=== PATIENT | female | born 1945 | race Caucasian/White ===

== ENCOUNTER 2023-08-24 12:34 | Outpatient (CLI) | payer MEDICARE, MEDICAID, SELFPAY ==
[2023-08-24 13:37] LABS: Basophils # 0.1 K/mm3 (0-0.2); Basophils % 0.6 % (0.1-2.0); Eosinophils # 0.7 K/mm3 (0.0-0.4); Eosinophils % 6.1 % (0.1-12.0); Hematocrit 45.1 % (37.0-47.0); Hemoglobin 14.7 g/dL (12.2-16.2); Lymphocytes # 2.4 K/mm3 (0.7-4.5); Lymphocytes % 21.9 % (10-50); Mean Corpuscular HGB Conc 32.7 g/dL (31.8-35.4); Mean Corpuscular Hemoglobin 29.1 pg (27.0-31.2); Mean Corpuscular Volume 88.9 fl (81-99); Mean Platelet Volume 8.5 fl (7.4-10.4); Monocytes # 0.5 K/mm3 (0.1-1.0); Monocytes % 4.3 % (1.7-9.3); Neutrophils # 7.3 K/mm3 (1.8-7.8); Neutrophils % 66.9 % (37.0-80.0); Platelet Count 326 K/mm3 (142-424); Red Blood Count 5.07 M/mm3 (4.20-5.40); Red Cell Distribution Width 14.5 % (11.5-17.5); White Blood Count 10.9 K/mm3 (4.8-10.8)
[2023-08-24 14:57] LABS: 25-OH Vitamin D, Total 60.7 ng/mL (30-100)
[2023-08-30 14:10] LABS: Immunoglobulin E, Total 21 IU/mL (6-495)
== END 2023-08-24 23:59 ==
PROVIDERS: PCP Family Medicine; Visit Provider Allergy & Immunology
DX: J45.50 Severe persistent asthma, uncomplicated (principal); E66.9 Obesity, unspecified; Z68.36 Body mass index [BMI] 36.0-36.9, adult
CPT/HCPCS: 36415; 82306; 82785; 85025